=== PATIENT | male | born 1940 | race Two or more races ===

== ENCOUNTER 2022-10-21 22:51 | Inpatient (IN) | payer OTHER ==
[~2022-10-21] VITALS: Ht 177.8 cm; Wt 91.2 kg
[2022-10-22] VITALS (9 sets, daily range): BP systolic 121–163; BP diastolic 49–72; PULSE 62–99; RESP 18–20; TEMP 97.5–98.8; O2SAT 94–98
[2022-10-22] MEDS ORDERED: hydrALAZINE HCL 10 MG TAB PO PRN (01:00)
[2022-10-22] MEDS ORDERED: ONDANSETRON HCL 4 MG/2 ML VIAL IV PRN (01:00)
[2022-10-22] MEDS ORDERED: VANCOMYCIN PER PHARMACY 0 MG IV SCH (01:00)
[2022-10-22] MEDS ORDERED: HYDROcodone-ACET 5/325MG TAB PO PRN (01:00)
[2022-10-22] MEDS ORDERED: ACETAMINOPHEN 325 MG TAB PO PRN (01:00)
[2022-10-22] MEDS ORDERED: VANCOMYCIN 1GM/250ML 250 ML IV ONE (03:00)
[2022-10-22] MEDS: cefTRIAXone 1GM/50ML D5W 50 ML IV SCH (03:02)
[2022-10-22] MEDS: MORPHINE SULFATE INJ 2 MG/ml SYRG IV PRN (03:18)
[2022-10-22] MEDS ORDERED: SOLI5TAB42 PO (03:33)
[2022-10-22] MEDS ORDERED: OFL50TS (03:33)
[2022-10-22] MEDS ORDERED: PRED1SUS4 EACHEYE (03:33)
[2022-10-22] MEDS ORDERED: SIMV20TA20 PO (03:33)
[2022-10-22] MEDS ORDERED: LOS25T PO (03:33)
[2022-10-22] MEDS ORDERED: HYDR-4798 PO (03:33)
[2022-10-22] MEDS ORDERED: MORP1TAB14 PO (03:33)
[2022-10-22] MEDS ORDERED: [UNRECOGNIZED DRUG - CODE] (03:33)
[2022-10-22] MEDS ORDERED: GLIM2TAB94 PO (03:33)
[2022-10-22 06:13] LABS: Basophils # (auto) 0.1 10 ^3/uL (0-0.2); Basophils % (auto) 0.9 % (0.0-2.0); Eosinophils # (auto) 0.1 10 ^3/uL (0-0.8); Eosinophils % (auto) 1.5 % (0.0-7.0); Hematocrit 29.4 % (41.0-53.0); Hemoglobin 9.7 g/dL (13.5-17.5); Lymphocytes # (auto) 1.1 10 ^3/uL (0.4-5.4); Lymphocytes % (auto) 14.3 % (10.0-50.0); Mean Corpuscular Hemoglobin 28.2 pg (28.0-32.0); Mean Corpuscular Hgb Conc. 33.1 g/dL (32.0-36.0); Mean Corpuscular Volume 85.2 fL (80.0-100.0); Monocytes # (auto) 0.6 10 ^3/uL (0-1.3); Monocytes % (auto) 7.4 % (0.0-12.0); Neutrophils # (auto) 5.8 10 ^3/uL (1.6-8.6); Neutrophils % (auto) 75.9 % (37.0-80.0); Nucleated Red Blood Cells % 0.1 %; Red Blood Cells 3.45 10^6/uL (4.5-5.90); Red Cell Distribution Width 14.3 % (11.8-14.3); White Blood Cell 7.6 10^3/uL (4.4-10.8)
[2022-10-22 06:21] LABS: INR 1.09 (0.9-1.15); Prothrombin Time 11.4 sec (9.3-11.8)
[2022-10-22 06:33] LABS: BUN/Creatinine Ratio 19.7 (10.0-20.0); Calcium 9.1 mg/dL (8.5-10.1)
[2022-10-22 06:44] LABS: Potassium 5.9 mmol/L (3.5-5.1)
[2022-10-22] MEDS ORDERED: InsuLIN REG 1unit/0.01ml Soln (100units/ml) IV ONE (07:00)
[2022-10-22] MEDS ORDERED: CALCIUM GLUC 1,000mg/50ml-NS 50 ML IV ONE (07:00)
[2022-10-22] MEDS ORDERED: ALBUTEROL SULF 2.5 MG/0.5ML(0.5%) NEB SOLN NEB ONE (07:00)
[2022-10-22] MEDS ORDERED: SODIUM ZIRCONIUM CYCL 10 GM PAK PO ONE (07:00)
[2022-10-22] MEDS ORDERED: DEXTROSE (50%) 50ML SYRG IV ONE (07:00)
[2022-10-22] MEDS ORDERED: ALBUTEROL SULF 2.5 MG/0.5ML(0.5%) NEB SOLN ONE (09:13)
[2022-10-22 12:09] LABS: Magnesium 2.8 mg/dL (1.6-2.6)
[2022-10-22 12:12] LABS: Phosphorus 3.6 mg/dL (2.5-4.90)
[2022-10-22 16:38] LABS: BUN/Creatinine Ratio 18.8 (10.0-20.0); Calcium 8.7 mg/dL (8.5-10.1); Potassium 5.5 mmol/L (3.5-5.1)
[2022-10-22] MEDS: SODIUM ZIRCONIUM CYCL 10 GM PAK PO SCH ×2 (17:20→21:43)
[2022-10-22 22:12] LABS: Urine Bacteria NONE SEEN /hpf (None Seen); Urine Blood Negative /uL (Negative); Urine Clarity Clear (Clear); Urine Color Colorless (Yellow); Urine Protein, UAD 1+ (Negative); Urine Specific Gravity 1.011 (1.001-1.035); Urine Urobilinogen Normal (Negative); Urine WBC <1 /hpf (0 - 3); Urine pH 6.5 (5.0-8.0)
[2022-10-23] VITALS (8 sets, daily range): BP systolic 98–157; BP diastolic 65–81; PULSE 59–86; RESP 17–20; TEMP 97.6–98.3; O2SAT 95–99
[2022-10-23] MEDS: SODIUM ZIRCONIUM CYCL 10 GM PAK PO SCH (05:26)
[2022-10-23 06:06] LABS: Albumin 3.2 g/dL (3.4-5.0); Calcium 9.3 mg/dL (8.5-10.1); Potassium 4.9 mmol/L (3.5-5.1)
[2022-10-23 06:08] LABS: BUN/Creatinine Ratio 18.3 (10.0-20.0)
[2022-10-23 06:11] LABS: Bilirubin, Total 0.3 mg/dL (0.2-1.0); Total Protein 7.2 g/dL (6.4-8.2)
[2022-10-23 07:33] LABS: Uric Acid 5.7 mg/dL (3.5-7.2)
[2022-10-23] MEDS: cefTRIAXone 1GM/50ML D5W 50 ML IV SCH (10:15)
[2022-10-23] MEDS ORDERED: VANCOMYCIN 1GM/250ML 250 ML IV ONE (17:00)
[2022-10-23] MEDS ORDERED: VANCOMYCIN PER PHARMACY 0 MG IV SCH (17:30)
[2022-10-23] MEDS ORDERED: VANCOMYCIN 750mg/250ml 250 ML IV ONE ×2 (17:30→18:00)
[2022-10-23] MEDS ORDERED: LINEZOLID 600MG/300ML 300 ML IV SCH (22:00)
[2022-10-23] MEDS ORDERED: MELATONIN 5 MG TAB PO PRN (23:45)
[2022-10-24] VITALS (8 sets, daily range): BP systolic 105–160; BP diastolic 64–76; PULSE 61–85; RESP 17–20; TEMP 97.6–98.1; O2SAT 92–99
[2022-10-24 08:16] LABS: Calcium 9.2 mg/dL (8.5-10.1); Potassium 4.5 mmol/L (3.5-5.1)
[2022-10-24 08:18] LABS: BUN/Creatinine Ratio 17.5 (10.0-20.0)
[2022-10-24] MEDS ORDERED: VANCOMYCIN 750mg/250ml 250 ML IV ONE (10:00)
[2022-10-24] MEDS: cefTRIAXone 1GM/50ML D5W 50 ML IV SCH (10:42)
[2022-10-24] MEDS: MORPHINE SULFATE INJ 2 MG/ml SYRG IV PRN (12:39)
[2022-10-24] MEDS ORDERED: traZODone HCL 50 MG TAB PO PRN (13:00)
[2022-10-24 14:33] LABS: Urine Bacteria FEW /hpf (None Seen); Urine Blood TRACE /uL (Negative); Urine Clarity Clear (Clear); Urine Color STRAW (Yellow); Urine Protein, UAD 1+ (Negative); Urine Specific Gravity 1.006 (1.001-1.035); Urine Urobilinogen Normal (Negative); Urine WBC <1 /hpf (0 - 3)
[2022-10-24 14:57] LABS: Protein, Urine 47.5 mg/dL (0.0-11.9); Urine Protein/Creatinine Ratio 1.76
[2022-10-25] VITALS (7 sets, daily range): BP systolic 133–161; BP diastolic 55–75; PULSE 58–74; RESP 16–20; TEMP 97.6–99; O2SAT 96–99
[2022-10-25 06:09] LABS: INR 1.14 (0.9-1.15); Partial Thromboplastin Time 29.7 SEC (24.5-34.5); Prothrombin Time 11.9 sec (9.3-11.8)
[2022-10-25] MEDS: cefTRIAXone 1GM/50ML D5W 50 ML IV SCH (09:38)
[2022-10-25] MEDS ORDERED: LIDOCAINE 1% (LOCAL ANESTH.) PF 5ml SDV ID ONE (10:45)
[2022-10-25 11:58] LABS: BUN/Creatinine Ratio 17.6 (10.0-20.0); Calcium 9.1 mg/dL (8.5-10.1); Potassium 4.1 mmol/L (3.5-5.1)
[2022-10-25] MEDS ORDERED: VANCOMYCIN 1GM/250ML 250 ML IV ONE (12:45)
[2022-10-25] MEDS: SODIUM CHLOR 0.9% PF (SALINE LOCK) 10ML VIAL/SYR IV SCH (20:38)
[2022-10-25] MEDS: MORPHINE SULFATE INJ 2 MG/ml SYRG IV PRN (20:39)
[2022-10-26 05:00] VITALS: BP 158/65; PULSE 65; RESP 18; TEMP 97.8; O2SAT 97
[2022-10-26 05:53] LABS: Potassium 3.9 mmol/L (3.5-5.1)
[2022-10-26 05:58] LABS: BUN/Creatinine Ratio 17.8 (10.0-20.0); Calcium 8.7 mg/dL (8.5-10.1)
[2022-10-26 06:01] LABS: Basophils # (auto) 0.1 10 ^3/uL (0-0.2); Basophils % (auto) 1.2 % (0.0-2.0); Eosinophils # (auto) 0.2 10 ^3/uL (0-0.8); Eosinophils % (auto) 1.7 % (0.0-7.0); Hematocrit 31.6 % (41.0-53.0); Hemoglobin 10.9 g/dL (13.5-17.5); Lymphocytes # (auto) 1.2 10 ^3/uL (0.4-5.4); Lymphocytes % (auto) 13.7 % (10.0-50.0); Mean Corpuscular Hemoglobin 28.5 pg (28.0-32.0); Mean Corpuscular Hgb Conc. 34.3 g/dL (32.0-36.0); Mean Corpuscular Volume 83.1 fL (80.0-100.0); Monocytes # (auto) 0.7 10 ^3/uL (0-1.3); Monocytes % (auto) 8.1 % (0.0-12.0); Neutrophils # (auto) 6.8 10 ^3/uL (1.6-8.6); Neutrophils % (auto) 75.3 % (37.0-80.0); Nucleated Red Blood Cells % 0.1 %; Red Blood Cells 3.81 10^6/uL (4.5-5.90); Red Cell Distribution Width 13.6 % (11.8-14.3)
[2022-10-26 08:00] VITALS: PULSE 58; PULSE 61; RESP 18
[2022-10-26 09:04] VITALS: BP 148/80; PULSE 75; RESP 19; TEMP 98.2; O2SAT 97
[2022-10-26] MEDS: cefTRIAXone 1GM/50ML D5W 50 ML IV SCH (09:27)
[2022-10-26] MEDS: SODIUM CHLOR 0.9% PF (SALINE LOCK) 10ML VIAL/SYR IV SCH (11:12)
[2022-10-26 13:16] VITALS: BP 144/80; PULSE 77; RESP 19; TEMP 98.3; O2SAT 98
[2022-10-26 13:33] VITALS: BP 118/62; PULSE 77; RESP 16; TEMP 98.2; O2SAT 97
[2022-10-26] MEDS ORDERED: VANCOMYCIN 1GM/250ML 250 ML IV SCH (14:00)
[2022-10-26 17:02] VITALS: BP 144/80; PULSE 69; RESP 19; TEMP 36.8; O2SAT 98
== END 2022-10-26 19:54 | disposition home health service (06) | DRG 515 ==
LOC: TELE-EAST 10-22 01:07 → UNDOADMIN 10-22 01:07 → TELE-EAST 10-22 01:51
PROVIDERS: ADMIT Nurse Practitioner Family; ATTEND Internal Medicine
PROC: 0QBQ0ZZ Excision of Right Toe Phalanx, Open Approach (ICD-10-PCS; principal; 2022-10-23)
PROC: 02HV33Z Insertion of Infusion Device into Superior Vena Cava, Percutaneous Approach (ICD-10-PCS; 2022-10-25)
PROC: B548ZZA Ultrasonography of Superior Vena Cava, Guidance (ICD-10-PCS; 2022-10-25)
DX: M86.171 Other acute osteomyelitis, right ankle and foot (principal); N17.0 Acute kidney failure with tubular necrosis; L03.115 Cellulitis of right lower limb; E11.69 Type 2 diabetes mellitus with other specified complication; E78.5 Hyperlipidemia, unspecified; E87.5 Hyperkalemia; I12.9 Hypertensive chronic kidney disease with stage 1 through stage 4 chronic kidney disease, or unspecified chronic kidney disease; D63.1 Anemia in chronic kidney disease; E11.22 Type 2 diabetes mellitus with diabetic chronic kidney disease; E11.51 Type 2 diabetes mellitus with diabetic peripheral angiopathy without gangrene; R32 Unspecified urinary incontinence; L97.519 Non-pressure chronic ulcer of other part of right foot with unspecified severity; N18.32 Chronic kidney disease, stage 3b; H26.9 Unspecified cataract; E11.621 Type 2 diabetes mellitus with foot ulcer; G89.4 Chronic pain syndrome
CPT/HCPCS: 36415; 36569; 71045; 73610; 73630; 73718; 76775; 80048; 80053; 80202; 81001; 82306; 82570; 82962; 83036; 83735; 83880; 83970; 84100; 84156; 84300; 84550; 85025; 85610; 85730; 87077; 87081; 87086; 87186; 87205; 93926; 94640; G0378; J0696; J1815

== ENCOUNTER 2022-12-13 14:41 | Emergency (ER) | payer OTHER ==
[~2022-12-13] VITALS: Ht 175.3 cm; Wt 85.2 kg
[~2022-12-13 14:41] MED LIST: GLIM2TAB94 PO; HYDR-4798 PO; MORP1TAB14 PO; OFL50TS; PRED1SUS4 EACHEYE; SIMV20TA20 PO; SOLI5TAB42 PO; [UNRECOGNIZED DRUG - CODE]
[2022-12-13 16:09] LABS: Basophils # (auto) 0.2 10 ^3/uL (0-0.2); Basophils % (auto) 2.8 % (0.0-2.0); Eosinophils # (auto) 0.2 10 ^3/uL (0-0.8); Eosinophils % (auto) 2.3 % (0.0-7.0); Hematocrit 30.7 % (41.0-53.0); Hemoglobin 10.1 g/dL (13.5-17.5); Lymphocytes # (auto) 1.3 10 ^3/uL (0.4-5.4); Lymphocytes % (auto) 18.9 % (10.0-50.0); Mean Corpuscular Hemoglobin 27.6 pg (28.0-32.0); Mean Corpuscular Hgb Conc. 32.8 g/dL (32.0-36.0); Mean Corpuscular Volume 84.1 fL (80.0-100.0); Monocytes # (auto) 0.5 10 ^3/uL (0-1.3); Neutrophils # (auto) 4.7 10 ^3/uL (1.6-8.6); Nucleated Red Blood Cells % 0.1 %; Red Blood Cells 3.65 10^6/uL (4.5-5.90); Red Cell Distribution Width 14.8 % (11.8-14.3); White Blood Cell 6.9 10^3/uL (4.4-10.8)
[2022-12-13 16:29] LABS: Alanine Aminotransferase 40 U/L (7-40); Albumin 4.3 g/dL (3.2-4.8); Alkaline Phosphatase 138 U/L (46-116); Anion Gap 8 (5-15); Aspartate Aminotransferase 36 U/L (13-40); BUN/Creatinine Ratio 17.8 (10.0-20.0); Bilirubin, Total 0.4 mg/dL (0.2-1.0); Blood Urea Nitrogen 29 mg/dL (9-23); Calcium 9.7 mg/dL (8.5-10.1); Carbon Dioxide 24 mmol/L (20-30); Chloride 109 mmol/L (98-107); Glucose 144 mg/dL (74-106); Potassium 4.5 mmol/L (3.5-5.1); Sodium 141 mmol/L (136-145); Total Protein 7.2 g/dL (5.7-8.2)
[2022-12-13 18:27] LABS: Urine Bacteria NONE SEEN /hpf (None Seen); Urine Blood TRACE /uL (Negative); Urine Clarity Clear (Clear); Urine Color Yellow (Yellow); Urine Protein, UAD 2+ (Negative); Urine Specific Gravity 1.018 (1.001-1.035); Urine Urobilinogen Normal (Negative); Urine WBC 1 /hpf (0 - 3); Urine pH 5.5 (5.0-8.0)
[2022-12-13] MEDS: ACETAMINOPHEN 325 MG TAB PO ONE ×2 (21:10→21:13)
[2022-12-13 21:21] LABS: Basophils # (auto) 0 10 ^3/uL (0-0.2); Basophils % (auto) 0.3 % (0.0-2.0); Eosinophils # (auto) 0.3 10 ^3/uL (0-0.8); Eosinophils % (auto) 3.7 % (0.0-7.0); Hemoglobin 11.4 g/dL (13.5-17.5); Lymphocytes # (auto) 1.8 10 ^3/uL (0.4-5.4); Lymphocytes % (auto) 23.6 % (10.0-50.0); Mean Corpuscular Hemoglobin 27.9 pg (28.0-32.0); Mean Corpuscular Hgb Conc. 32.7 g/dL (32.0-36.0); Mean Corpuscular Volume 85.2 fL (80.0-100.0); Monocytes # (auto) 0.6 10 ^3/uL (0-1.3); Monocytes % (auto) 7.5 % (0.0-12.0); Neutrophils # (auto) 4.9 10 ^3/uL (1.6-8.6); Neutrophils % (auto) 64.9 % (37.0-80.0); Red Cell Distribution Width 14.9 % (11.8-14.3); White Blood Cell 7.6 10^3/uL (4.4-10.8)
[2022-12-13 21:36] LABS: INR 1.12 (0.9-1.15); Partial Thromboplastin Time 24.2 SEC (24.5-34.5); Prothrombin Time 11.7 sec (9.3-11.8)
[2022-12-13 21:52] LABS: Alanine Aminotransferase 44 U/L (7-40); Albumin 4.5 g/dL (3.2-4.8); Alkaline Phosphatase 156 U/L (46-116); Anion Gap 9 (5-15); Aspartate Aminotransferase 34 U/L (13-40); BUN/Creatinine Ratio 22.6 (10.0-20.0); Bilirubin, Total 0.5 mg/dL (0.2-1.0); Blood Urea Nitrogen 38 mg/dL (9-23); Calcium 9.8 mg/dL (8.5-10.1); Carbon Dioxide 26 mmol/L (20-30); Chloride 106 mmol/L (98-107); Glucose 220 mg/dL (74-106); Potassium 4.3 mmol/L (3.5-5.1); Sodium 141 mmol/L (136-145); Total Protein 7.3 g/dL (5.7-8.2)
[2022-12-14 00:08] VITALS: TEMP 97.9
[2022-12-14 00:45] VITALS: PULSE 77; RESP 14; O2SAT 100
[2022-12-14] MEDS ORDERED: DEXTROSE (50%) 50ML SYRG IV PRN (02:15)
[2022-12-14 04:49] LABS: Alanine Aminotransferase 35 U/L (7-40); Albumin 3.9 g/dL (3.2-4.8); Alkaline Phosphatase 127 U/L (46-116); Anion Gap 10 (5-15); Aspartate Aminotransferase 29 U/L (13-40); BUN/Creatinine Ratio 16.2 (10.0-20.0); Bilirubin, Total 0.4 mg/dL (0.2-1.0); Calcium 9.3 mg/dL (8.5-10.1); Carbon Dioxide 24 mmol/L (20-30); Chloride 109 mmol/L (98-107); Glucose 233 mg/dL (74-106); Potassium 4.7 mmol/L (3.5-5.1); Sodium 143 mmol/L (136-145); Total Protein 6.7 g/dL (5.7-8.2)
[2022-12-14 04:51] LABS: Blood Urea Nitrogen 28 mg/dL (9-23)
[2022-12-14 06:32] VITALS: BP 123/53; PULSE 68; RESP 16; O2SAT 96
[2022-12-14] MEDS ORDERED: ACCU-CHEK COMFORT CURVE STRIP VI SCH (07:00)
[2022-12-14] MEDS ORDERED: InsuLIN REG 1unit/0.01ml Soln (100units/ml) SC SCH (07:00)
== END 2022-12-14 06:40 | disposition home or self-care (01) ==
LOC: ER 14:41
DX: N17.9 Acute kidney failure, unspecified (principal); M79.671 Pain in right foot; I10 Essential (primary) hypertension; E11.9 Type 2 diabetes mellitus without complications; Z86.73 Personal history of transient ischemic attack (TIA), and cerebral infarction without residual deficits
CPT/HCPCS: 36415; 71045; 74176; 76775; 80053; 81001; 83880; 84484; 85025; 85610; 85730; 93005